=== PATIENT | female | born 1990 | race Caucasian/White ===

== ENCOUNTER 2017-07-02 06:59 | Emergency (ER) | payer OTHER ==
[2017-07-02 07:10] VITALS: BP 143/68; PULSE 94; RESP 17; TEMP 99.1
[2017-07-02] MEDS ORDERED: IBUPROFEN 800 MG TAB PO STA (07:18)
--- NOTE | 2017-07-02 07:23 | ED ---
Back Pain HPI - General Chief Complaint: Back Pain/Injury Stated Complaint: fall,back pain Time Seen by Provider: 07/02/17 07:11 Source: patient Limitations: no limitations - History of Present Illness Initial Comments: This is a 27-year-old female with a history of a sixth lumbar vertebrae who presents emergency department for lower back pain. She states that she chronically has lower back pain however this morning slipped on a patch of ice and landed on her buttock. She states that she immediately had more pain. She was able to get up and ambulate afterwards with some discomfort. She denies any shooting pain down her legs. No numbness or tingling. She denies any saddle anesthesia. No bowel or bladder incontinence. She states that she came in just to get evaluated. He has not tried anything for the pain. Denies hitting her head or any other injuries. No loss of consciousness. No other complaints. - Related Data Home Medications Medication Instructions Recorded Confirmed No Known Home Medications [No 07/02/17 07/02/17 Known Home Medications] Allergies Allergy/AdvReac Type Severity Reaction Status Date / Time No Known Allergies Allergy Verified 07/02/17 07:35 Review of Systems ROS Statement: Those systems with pertinent positive or pertinent negative responses have been documented in the HPI. ROS Other: All systems not noted in ROS Statement are negative. Past Medical History Past Medical History: No Reported History History of Any Multi-Drug Resistant Organisms: MRSA Date of last positivie culture/infection: 2010 MDRO Source:: stomach Additional Past Surgical History / Comment(s): right knee Past Psychological History: No Psychological Hx Reported Smoking Status: Current every day smoker Past Alcohol Use History: Rare Past Drug Use History: None Reported General Exam - General Exam Comments Initial Comments: Constitutional: Awake alert Appears comfortable Head: Normocephalic atraumatic Eyes: no conjunctival injection No scleral icterus EOMI Neck: No JVD Supple Heart: Regular rate rhythm normal S1-S2 no murmurs Lungs: Clear to auscultation bilaterally No wheezing No rales Abdomen: Soft nondistended nontender Extremities: Mild paraspinal tenderness to palpation in the right lateral lower lumbar area however no midline tenderness or bony tenderness Non edematous DP pulses intact Radial pulses intact Neuro: A&Ox3, 5 out of 5 strength in bilateral lower extremities with plantar flexion and dorsiflexion, 2 out of 4 patellar reflexes bilaterally, patient able to stand up under her own power and ambulate No focal neurologic deficits Psych: Appropriate mood and affect Limitations: no limitations Course Vital Signs 07/02/17 07:06 Temperature 99.1 F Pulse Rate 94 Respiratory 17 Rate Blood Pressure 143/68 O2 Sat by Pulse 97 Oximetry Medical Decision Making - Medical Decision Making This is a 27-year-old female who presents emergency department for back pain after a fall. The patient had x-rays performed that did not show any evidence for fracture. Patient was given Motrin here. Instructed take Motrin or Tylenol at home for pain and ice the area. She was instructed to rest and was given a work note for today. Told to return should worsening or changing symptoms. All questions were answered. Disposition Clinical Impression: Back pain Disposition: HOME SELF-CARE Condition: Stable Instructions: Acute Low Back Pain (ED) Additional Instructions: Please take Motrin or Tylenol for pain. Use ice as needed. Referrals: None,Stated [Primary Care Provider] - 1-2 days
--- NOTE | 2017-07-02 07:33 | XR ---
EXAMINATION TYPE: XR lumbar spine 2 or 3V DATE OF EXAM: 07/02/2017 COMPARISON: 06/17/2015 HISTORY: 27-year-old female with pain after fall today TECHNIQUE: 3 views FINDINGS: Small T12 ribs. 5 lumbar type vertebral bodies. Vertebral body heights are preserved as are disc inte rspaces and alignment is maintained. No significant degenerative change seen. IMPRESSION: No vertebral compression collapse or malalignment. No significant spondylotic change.
== END 2017-07-02 07:46 | disposition home or self-care (01) ==
LOC: EC 06:59
DX: M54.5 Low back pain (principal); F17.200 Nicotine dependence, unspecified, uncomplicated; Z86.14 Personal history of Methicillin resistant Staphylococcus aureus infection; W00.0XXA Fall on same level due to ice and snow, initial encounter
CPT/HCPCS: 72100; 99283

== ENCOUNTER → 2020-08-26 | Outpatient (CLI) | payer BC, OTHER ==
[2020-08-26 13:34] VITALS: BP 120/72; PULSE 77; TEMP 98.2; BMI 37.1
[2020-08-26 15:21] LABS: HCT 40.1 % (34.0-46.0); HGB 13.7 gm/dL (11.4-16.0); MCH 31.4 pg (25.0-35.0); MCHC 34.2 g/dL (31.0-37.0); MCV 91.7 fL (80.0-100.0); Mean Platelet Volume 7.8; Platelet Count 289 k/uL (150-450); RBC 4.37 m/uL (3.80-5.40); RDW 12.4 % (11.5-15.5); WBC 7.7 k/uL (3.8-10.6)
--- NOTE | 2020-08-26 15:27 | P.HPBAR ---
Bariatric H&P - History & Physicial H&P Date: 08/26/20 History & Physicial: Visit/CC: initial clinic visit Patient initial contact: Initial weight: Initial weight in pounds: Height: 5 ft 4.5 in Initial BMI: Last weight: Current weight: 99.79 kg Current weight in pounds: 220.00 Current BMI: 37.1 [place] body weight (based on NIH guidelines): 55.565 kg Excess body weight loss: The patient is a 30 year-old F who presents for Bariatric Assessment. 30-year-old female here to discuss surgical options for weight loss. Patient interested in sleeve gastrectomy. He has considered gastric bypass as well. Patient suffers from sciatica resulting in chronic back pain. Rare complaints of reflux. No history of DVT or dysphagia. Only surgical history as needed. Occasional tobacco use. BMI 37. Review of Systems The patient denies any acute changes in vision or hearing, no dysphagia or odynophagia, no chest pain or shortness of breath, no dysuria or hematuria, no headache, no runny nose, no rectal bleeding or melena, no unexplained weight loss Past Medical History Past Medical History: No Reported History History of Any Multi-Drug Resistant Organisms: MRSA Year Discovered:: 2010 MDRO Source:: stomach Past Surgical History: Orthopedic Surgery Additional Past Surgical History / Comment(s): right arthroscopic knee surgery Past Anesthesia/Blood Transfusion Reactions: No Reported Reaction Past Psychological History: No Psychological Hx Reported Smoking Status: Current some day smoker, Vaper Past Alcohol Use History: Rare Past Drug Use History: None Reported Surgical - Exam Vital Signs Temp Pulse BP 98.2 F 77 120/72 08/26/20 13:30 08/26/20 13:30 08/26/20 13:30 Physical exam: General: Well-developed, well-nourished HEENT: Normocephalic, sclerae nonicteric Abdomen: Nontender, nondistended Extremities: No edema Neuro: Alert and oriented Results - Labs 08/26/20 14:30 Bariatric Assessment & Plan (1) Obesity (BMI 30-39.9) Narrative/Plan: 30-year-old female with obesity and comorbidities in the form of reflux and chronic back pain. Patient interested in sleeve gastrectomy. Risks and benefits of both sleeve gastrectomy and gastric bypass discussed in detail. Rough estimate as to average weight loss with the surgeries also reviewed. Patient required supervised weight loss. Follow-up 3-4 months for EGD. Status: Acute Bariatric Checklist Checklist: Plan: Checklist: EGD: 1. Hiatal hernia: 2. H. Pylori: HgbA1c: Vitamin D: Smoking: Current every day smoker Primary care physician referral: Psychiatry clearance: Cardiology clearance: Sleep study: Diet journal: VTE risk score: VTE risk level: Rehab needs at discharge:
[2020-08-27 01:35] LABS: African American GFR (CKD) 116.3 (60.0-200.0); Albumin 4.8 g/dL (3.80-4.90); Albumin/Globulin Ratio 2.4 (1.60-3.17); Anion Gap 11.2 mmol/L (4.00-12.00); BUN/Creat Ratio 18.75 Ratio (12.00-20.00); Calcium 9.5 mg/dL (8.7-10.3); Carbon Dioxide 24.8 mmol/L (21.6-31.8); Non-African American GFR(CKD) 100.3 (60.0-200.0); Potassium 4.3 mmol/L (3.5-5.5); Total Bilirubin 0.3 mg/dL (0.3-1.2); Total Protein 6.8 g/dL (6.2-8.2)
[2020-08-27 02:11] LABS: Folate, Serum 14.6 ng/mL
== END | disposition home or self-care (01) ==
LOC: BARWHC3 12:59
PROVIDERS: ATTEND Surgery
DX: E66.9 Obesity, unspecified (principal); G89.29 Other chronic pain; M54.9 Dorsalgia, unspecified; Z68.30 Body mass index [BMI] 30.0-30.9, adult; F17.200 Nicotine dependence, unspecified, uncomplicated
CPT/HCPCS: 80053; 82306; 82607; 82746; 83036; 83540; 84425; 85027; 93005; 99203

== ENCOUNTER → 2021-02-21 | Outpatient (CLI) | payer BC ==
[2021-02-21 15:53] VITALS: BMI 38.1
== END ==
LOC: BARWHC3 08:48
PROVIDERS: ATTEND Surgery
DX: Z71.3 Dietary counseling and surveillance (principal); E66.01 Morbid (severe) obesity due to excess calories; F17.200 Nicotine dependence, unspecified, uncomplicated; Z68.38 Body mass index [BMI] 38.0-38.9, adult
CPT/HCPCS: 97804

== ENCOUNTER 2021-02-22 10:33 | Day surgery (SDC) | payer BC ==
[2021-02-17 12:03] VITALS: BMI 40.0
[~2021-02-22 10:33] MED LIST: LACTATED RINGERS 1,000 ML IV SCH; LIDOCAINE 1% (10MG/ML) FOR IV START INTRADERMA PRN
[2021-02-22 10:56] VITALS: RESP 16; TEMP 97.5
[2021-02-22] MEDS ORDERED: PROPOFOL 10 MG/ML 20 ML VIAL IV ONE (11:23)
[2021-02-22] MEDS ORDERED: LIDOCAINE 1% INJ 10MG/ML (20 ML MDV) ONE (11:23)
[2021-02-22] MEDS ORDERED: MIDAZOLAM 2 MG/2 ML VIAL ONE (11:23)
[2021-02-22] MEDS ORDERED: KETAMINE 10 MG/ML 20 ML VIAL ONE (11:23)
--- NOTE | 2021-02-22 11:28 | P.GSHP ---
History of Present Illness H&P Date: 02/22/21 Chief Complaint: GERD 30-year-old female here today for upper endoscopy. Patient with history of chronic reflux. Patient is being worked up for sleeve gastrectomy as well. Past Medical History Past Medical History: No Reported History History of Any Multi-Drug Resistant Organisms: MRSA Date of last positivie culture/infection: 2010 MDRO Source:: stomach Past Surgical History: Orthopedic Surgery Additional Past Surgical History / Comment(s): right arthroscopic knee surgery when in the 7th grade. Past Anesthesia/Blood Transfusion Reactions: No Reported Reaction Smoking Status: Former smoker - Past Family History Mother Family Medical History: No Reported History Medications and Allergies Home Medications Medication Instructions Recorded Confirmed Type Multivitamins, Thera [Multivitamin 1 tab PO DAILY 02/17/21 02/22/21 History (formulary)] Allergies Allergy/AdvReac Type Severity Reaction Status Date / Time No Known Allergies Allergy Verified 02/22/21 11:05 Surgical - Exam Vital Signs Temp Pulse Resp BP Pulse Ox 97.5 F L 82 16 128/68 99 02/22/21 10:53 02/22/21 10:53 02/22/21 10:53 02/22/21 10:53 02/22/21 10:53 Physical exam: General: Well-developed, well-nourished HEENT: Normocephalic, sclerae nonicteric Abdomen: Nontender, nondistended Extremities: No edema Neuro: Alert and oriented Assessment and Plan (1) GERD (gastroesophageal reflux disease) Narrative/Plan: Will proceed with upper endoscopy Current Visit: Yes Status: Acute Code(s): K21.9 - GASTRO-ESOPHAGEAL REFLUX DISEASE WITHOUT ESOPHAGITIS SNOMED Code(s): 354263129
--- NOTE | 2021-02-22 11:34 | P.PCN ---
Date of Procedure: 02/22/21 Procedure(s) Performed: Preoperative Dx: GERD, presurgical Postoperative Dx: Mild gastritis Procedure: EGD with Bx Anesthesia: Sedation Endoscopist: Dr. Valverde Specimens: Antrum Endoscopic Procedure: The patient was on the endoscopy table in the left decubitus position. The Olympus gastroscope was inserted into the oropharynx and passed under direct visualization to the region of the third portion of the duodenum. From that point the scope was slowly withdrawn inspecting all surfaces carefully. There were no neoplastic inflammatory or polypoid lesions throughout the duodenum. The pylorus was widely patent. The stomach was carefully inspected. There was mild gastritis present. A biopsy of the antrum took place to rule out H. pylori. Retroflexion revealed a normal hiatus. The esophagus was then carefully examined. There were no neoplastic inflammatory or polypoid lesions throughout the visualized esophagus. The patient was then taken to the recovery room in stable condition per anesthesia guidelines. Recommendations: Await biopsy results. Proceed with sleeve gastrectomy.
[2021-02-22 11:40] VITALS: PULSE 72
[2021-02-22 11:52] VITALS: BP 110/76
== END 2021-02-22 12:35 | disposition home or self-care (01) ==
LOC: ORWHC2ENDO 10:33
PROVIDERS: ATTEND Surgery
DX: K29.50 Unspecified chronic gastritis without bleeding (principal); K21.9 Gastro-esophageal reflux disease without esophagitis; Z86.14 Personal history of Methicillin resistant Staphylococcus aureus infection; Z98.890 Other specified postprocedural states; F17.200 Nicotine dependence, unspecified, uncomplicated
CPT/HCPCS: 81025; 88305; 43239; J2250; J2001; J2704

== ENCOUNTER → 2021-03-29 | Outpatient (CLI) | payer BC ==
[2021-03-29 16:12] VITALS: BP 119/76; PULSE 79; TEMP 98.2; BMI 38.2
--- NOTE | 2021-03-29 16:29 | P.BASOAP ---
Subjective Progress Note Date: 03/29/21 Principal diagnosis: Morbid obesity Patient returns for reevaluation. Underwent EGD 02/22. Patient remains interested in sleeve gastrectomy. EGD showed mild gastritis. Patient still smoking. No other changes to the prior history and physical. Objective - Vital Signs Vital signs: Vital Signs Temp 98.2 F 03/29/21 16:09 Pulse 79 03/29/21 16:09 Resp BP 119/76 03/29/21 16:09 Pulse Ox Intake & Output 03/28/21 03/29/21 03/29/21 18:59 06:59 18:59 Weight 102.512 kg - Exam Abdomen: Soft, nontender, nondistended Assessment/Plan (1) Obesity (BMI 30-39.9) Narrative/Plan: Patient remains interested in sleeve gastrectomy. Surgical consent form and [facility] IP forms reviewed. Will schedule once smoking cessation confirmed. Plan: Date: 03/29/21 Initial Weight: Initial BMI: Current Weight: 102.512 kg Current BMI: 38.2 Type of Surgery: Total Volume in Band: Previous Volume: Volume Removed: Volume Added: Band Size:
== END ==
LOC: BARWHC3 15:12
PROVIDERS: ATTEND Surgery
DX: E66.01 Morbid (severe) obesity due to excess calories (principal); K21.9 Gastro-esophageal reflux disease without esophagitis; F17.200 Nicotine dependence, unspecified, uncomplicated; Z68.38 Body mass index [BMI] 38.0-38.9, adult
CPT/HCPCS: 99211